=== PATIENT | male | born 1985 | race Caucasian/White ===

== ENCOUNTER 2021-12-30 14:22 | Emergency (ER) | payer SELFPAY ==
[~2021-12-30] VITALS: Ht 165.1 cm; Wt 75.0 kg
[2021-12-30] MEDS ORDERED: KETOROLAC 60MG/2ML VIAL IM ONE (15:00)
[2021-12-30] MEDS ORDERED: NAPR-681 MT (15:44)
[2021-12-30 16:14] VITALS: BP 149/92
== END 2021-12-30 16:16 | disposition home or self-care (01) ==
LOC: ER 14:48
DX: M25.571 Pain in right ankle and joints of right foot (principal)
CPT/HCPCS: 29515; 73610; 99283